=== PATIENT | female | born 1960 | race Caucasian/White ===

== ENCOUNTER → 2021-10-30 | Outpatient (CLI) | payer OTHER ==
--- NOTE | 2021-10-30 17:32 | Diagnostic Imaging Report ---
CLINICAL INDICATION: Patient has chronic neck pain and history of being thrown from a horse 15 years ago. EXAM: MRI of the cervical spine performed without IV contrast. Sequences include sagittal T2, sagittal T1, sagittal T2 fat-sat, and axial T2. COMPARISON: None. FINDINGS: There is no acute cervical spine fracture or dislocation. There are no abnormal Modic degenerative signal changes. There are chronic compression deformities involving the upper endplates of the T3, T4, and T5 vertebrae. There is no significant paraspinal soft tissue abnormality. Limited visualization of the posterior fossa is unremarkable. Visualized portions of the cervical spinal cord is unremarkable. There is bilateral facet arthropathy/hypertrophy. There is excessive lordosis of the cervical spine posture versus positioning. C1-C2: There are degenerative spurs involving the atlanto-odontoid interval anteriorly. There is no significant central canal narrowing. C2-C3: There is a subtle left paracentral disc bulge. There is no significant central canal or neural foramen narrowing. C3-C4: There are broad posterior disk spurs. There is ligamentum flavum buckling. There is mild bilateral facet arthropathy. There is severe central canal stenosis and severe bilateral neural foramen narrowing. C4-C5: There is a subtle posterior disc bulge. There is a small annular tear involving the anterior aspect of the disc. There is ligamentum flavum buckling. There is moderate bilateral facet arthropathy/hypertrophy. There is severe central canal stenosis. There is severe left neural foramen narrowing and moderate right neural foramen narrowing. C5-C6: There is a small broad posterior disc bulge. There is ligamentum flavum buckling. There is moderate bilateral facet arthropathy. There is mild central canal narrowing. There is severe left neural foramen narrowing and at least moderate right neural foramen narrowing. C6-C7: There is severe right facet arthropathy/hypertrophy and moderate left facet arthropathy. There is ligamentum flavum buckling. There is mild central canal narrowing. There is mild bilateral neural foramen narrowing. C7-T1: There is moderate right facet arthropathy. There is mild ligamentum flavum buckling. There is mild central canal narrowing. IMPRESSION: There is multilevel cervical spine degenerative disease. Dictated by: Dictated on workstation # [id number]
== END ==
LOC: RAD 13:37
PROVIDERS: ATTEND Nurse Practitioner Gerontology
DX: M47.812 Spondylosis without myelopathy or radiculopathy, cervical region (principal)
CPT/HCPCS: 72141